=== PATIENT | male | born 1950 | race Caucasian/White ===

== ENCOUNTER 2023-11-25 16:52 | Emergency (ER) | payer MEDICARE, OTHER, SELFPAY ==
[2023-11-25 16:53] VITALS: BP 178/100; PULSE 57; RESP 15; TEMP 36.2; O2SAT 97; BMI 33.8
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
[2023-11-25 17:44] VITALS: BP 156/101; PULSE 60; RESP 15; O2SAT 97
[2023-11-25 17:56] VITALS: BP 158/103; PULSE 70; RESP 18; TEMP 36.1; O2SAT 99
== END 2023-11-25 18:00 | disposition home or self-care (01) ==
LOC: ED 18:07
PROVIDERS: Emergency Provider Emergency Medicine; PCP Family Medicine; Visit Provider Emergency Medicine
DX: R03.0 Elevated blood-pressure reading, without diagnosis of hypertension (principal); V49.9XXA Car occupant (driver) (passenger) injured in unspecified traffic accident, initial encounter
CPT/HCPCS: 96374; 99283; J3490